=== PATIENT | female | born 1945 | race Caucasian/White ===

== ENCOUNTER 2024-04-13 10:00 | Outpatient (RCR) | payer MEDICARE, SELFPAY | END 2024-05-23 11:44 | disposition home or self-care (01) | LOC: HO.PT 10:00 | PROVIDERS: PCP Physician Assistant Medical; Visit Provider Physician Assistant Medical | DX: M54.6 Pain in thoracic spine (principal) | CPT/HCPCS: 97110; 97140; 97161; 97535 ==